=== PATIENT | female | born 1990 | race American Indian/Alaskan Native ===

== ENCOUNTER 2017-06-13 13:00 | Emergency (ER) | payer OTHER ==
[2017-06-13 13:01] VITALS: BMI 30.9
[2017-06-13 13:19] VITALS: RESP 18; TEMP 98.3
--- NOTE | 2017-06-13 13:59 | C.PDOC ---
History Of Present Illness 27 yo female with PMH of asthma and anxiety c/o headache for one week. Pt notes that when she gets to work, she gets a headache . She doesnt take any medication for it but when she gets home it usually improves. Pt notes that she had a similar headache many years ago and was diagnosed with sinusitis. Also notes her twin sister has a h/o migraines. Denies visual changes, nasal congestion, nausea, vomiting, dizziness, chest pain, or SOB. Time Seen by Provider: 06/13/17 13:17 Chief Complaint (Nursing): Headache History Per: Patient History/Exam Limitations: no limitations Onset/Duration Of Symptoms: Intermittent Episodes Current Symptoms Are (Timing): Still Present Associated Symptoms: denies: Photophobia, Blurred Vision, Nausea, Vomiting, Extremity Weakness Past Medical History Vital Signs: Last Vital Signs Temp 98.3 F 06/13/17 13:15 Pulse 90 06/13/17 13:15 Resp 18 06/13/17 13:15 BP 115/71 06/13/17 13:15 Pulse Ox 94 L 06/13/17 14:08 - Medical History PMH: Anxiety, Asthma Denies: Depression Surgical History: Appendectomy Family History: States: Unknown Family Hx - Social History Hx Tobacco Use: No Hx Alcohol Use: Yes Hx Substance Use: No - Immunization History Hx Tetanus Toxoid Vaccination: No Hx Influenza Vaccination: No Hx Pneumococcal Vaccination: No Review Of Systems Except As Marked, All Systems Reviewed And Found Negative. Neurological: Positive for: Headache Physical Exam - Physical Exam Appears: Well, Non-toxic, No Acute Distress Skin: Normal Color, Warm, Dry Head: Atraumatic, Normacephalic Eye(s): bilateral: Normal Inspection, PERRL, EOMI Ear(s): Bilateral: Normal Nose: Normal Oral Mucosa: Moist Throat: Normal, No Erythema, No Exudate Neck: Normal, Normal ROM, Supple Chest: Symmetrical Cardiovascular: Rhythm Regular Respiratory: Normal Breath Sounds, No Accessory Muscle Use Back: Normal Inspection Extremity: Normal ROM Neurological/Psych: Oriented x3, Normal Speech, Normal Cognition, Normal Cranial Nerves (2-12 grossly intact, no focal deficits), Normal Sensation ED Course And Treatment O2 Sat by Pulse Oximetry: 94 Progress Note: Discussed risks vs benefits of CT. Pt requests CT as ordered. Pt later refused. Toradol and Reglan given. On reassessment, patient is resting comfortably, is tolerating PO, and no longer has headache, neurologic deficit, photophobia, rash, fever, or nuchal rigidity. Patient was instructed to follow up with physician/clinic in 1-2 days or return to ED if symptoms persist or worsen. Disposition - Disposition Referrals: Delon Valdez MD [Staff Provider] - Disposition: HOME/ ROUTINE Disposition Time: 14:07 Condition: STABLE Additional Instructions: Follow up with primary medical doctor in 1-3 days without fail for further evaluation. Take medications as prescribed. Return to the emergency department at any time if symptoms persist or worsen. Prescriptions: Naproxen [Naprosyn] 1 tab PO BID PRN #20 tab PRN Reason: Pain Instructions: Headache, Adult Forms: [facility] (Indonesian) - Clinical Impression Clinical Impression: Headache
[2017-06-13 14:24] VITALS: BP 121/75; PULSE 58
[2017-06-13 21:53] VITALS: O2SAT 94
== END 2017-06-13 14:24 | disposition home or self-care (01) ==
LOC: C.ER 13:00
DX: R51 Headache (principal)
CPT/HCPCS: 96372; 99284; J1885